=== PATIENT | female | born 1985 ===

== ENCOUNTER 2016-07-18 13:55 | Emergency (ER) | payer BC ==
--- NOTE | 2016-07-28 06:59 | ER ---
ADMIT: 07/18/2016 RM/LOC: ER [facility] MR#: [id number] [address] [id number] LUAN HAMILTON [address] [facility] [address] [address] Emergency Room Report SEX: F AGE: 31 : 1985 DATE: 07/18/2016 ADDENDUM: This patient comes to the ER because she has had fevers, cough, and cold for the last 4 days. She has body aching and is coughing up green phlegm. She states she also has severe headache. She is mostly concerned about the chest pain that she is having. On physical exam; her lungs are clear, her O2 saturation is 100% on room air. D-dimer was negative. Chest x- ray was negative. She was given a DuoNeb treatment, which she felt really helped with the pain in her chest and the cough that she was having. We taught her how to use an albuterol inhaler with a spacer and will have her push fluids and follow up with her primary as needed. Please see my T-sheet. JUAN Gottlieb / Ilia Ricketts MD / wood JOB #: [id number] CC: Ilia Ricketts MD, Attending Physician UNKNOWN, Family Physician
== END 2016-07-18 16:12 | disposition home or self-care (01) ==
LOC: ER 13:55
DX: J06.9 Acute upper respiratory infection, unspecified (principal); Z98.890 Other specified postprocedural states